=== PATIENT | male | born 1950 | race Caucasian/White ===

== ENCOUNTER 2018-01-08 13:47 | Emergency (ER) | payer MEDICARE, OTHER ==
[2018-01-08 13:58] VITALS: BP 158/93; PULSE 88; RESP 16; TEMP 98.3
--- NOTE | 2018-01-08 14:22 | ED ---
General Adult HPI - General Chief complaint: Fall Stated complaint: Fall Time Seen by Provider: 01/08/18 14:05 Source: patient, RN notes reviewed Mode of arrival: wheelchair Limitations: no limitations - History of Present Illness Initial comments: Patient 67-year-old male presents emergency room today with a chief complaint of fall occurred 2 days ago. He does admit that he fell forward after he was stung by a wasp. He states that he did not want us front teeth. Does have some abrasions to the lower chin. States to go to the dentist had this looked at. Does admit that over the last 2 days has been experiencing some discomfort to the right side of the ribs. Says reminds him of in the past when he had a broken rib. Patient also providing further history stating that he's been having his gallbladder looked at but they have not found any problem with it on their initial test. Patient states that this pain is different than pain that he's been experiencing recently with abdominal pain. He states this feels like his ribs to him. He denies any other complaints or symptoms at this time. Patient denies any recent fever, chills, shortness of breath, chest pain, nausea or vomiting, numbness or tingling, dysuria or hematuria, constipation or diarrhea, headaches or visual changes, or any other complaints. - Related Data Home Medications Medication Instructions Recorded Confirmed Aspirin EC [Ecotrin] 81 mg PO DAILY 05/15/15 05/16/15 Fluticasone/Salmeterol [Advair 1 inhalation PO BID 05/15/15 05/16/15 100-50 Diskus] Metoprolol Tartrate [Lopressor] 25 mg PO BID 05/15/15 05/16/15 Temazepam [Restoril] 30 mg PO HS 05/15/15 05/16/15 Allergies Allergy/AdvReac Type Severity Reaction Status Date / Time No Known Allergies Allergy Verified 01/08/18 13:58 Review of Systems ROS Statement: Those systems with pertinent positive or pertinent negative responses have been documented in the HPI. ROS Other: All systems not noted in ROS Statement are negative. 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 PLATELETS ELEVATED AND POTASSIUM ELEVATED- USES ADVAIR R/T POSSIBLE ALLERGY TO HIS CAT, GLASSES-DAILY USE History of Any Multi-Drug Resistant Organisms: None Reported Past Surgical History: Joint Replacement Additional Past Surgical History / Comment(s): ASHUTOSH HIP REPLACEMENTS & RT KNEE REPLACEMENT Past Anesthesia/Blood Transfusion Reactions: No Reported Reaction Past Psychological History: No Psychological Hx Reported Smoking Status: Never smoker Past Alcohol Use History: None Reported, Occasional Past Drug Use History: None Reported - Past Family History Father Family Medical History: Myocardial Infarction (NC) Additional Family Medical History / Comment(s): HAD NC IN HIS 80'S & CABG- LIVED INTO HIS 90'S Mother Additional Family Medical History / Comment(s): HEART PROBLEMS- HAD A STENT IN HER 80'S-LIVED INTO HER 90'S Brother(s) Additional Family Medical History / Comment(s): HX CABG X 2 General Exam - General Exam Comments Initial Comments: General: The patient is awake and alert, in no distress, and does not appear acutely ill. Eye: Pupils are equal, round and reactive to light, extra-ocular movements are intact. No nystagmus. There is normal conjunctiva bilaterally. No signs of icterus. Ears, nose, mouth and throat: There are moist mucous membranes and no oral lesions. Neck: The neck is supple, there is no tenderness or JVD. Cardiovascular: There is a regular rate and rhythm. No murmur, rub or gallop is appreciated. Respiratory: Lungs are clear to auscultation, respirations are non-labored, breath sounds are equal. No wheezes, stridor, rales, or rhonchi. Gastrointestinal: Soft, non-distended, non-tender abdomen without masses or organomegaly noted. There is no rebound or guarding present. No CVA tenderness. No bruising or ecchymosis. Musculoskeletal: Normal ROM, no tenderness. Strength 5/5. Sensation intact. Pulses equal bilaterally 2+. Neurological: A&O x 3. CN II-XII intact, There are no obvious motor or sensory deficits. Coordination appears grossly intact. Speech is normal. Skin: Skin is warm and dry and no rashes or lesions are noted. Psychiatric: Cooperative, appropriate mood & affect, normal judgment. Limitations: no limitations Course Vital Signs 01/08/18 13:55 Temperature 98.3 F Pulse Rate 88 Respiratory 16 Rate Blood Pressure 158/93 O2 Sat by Pulse 98 Oximetry Medical Decision Making - Medical Decision Making X-rays reviewed and does show fracture nondisplaced of the right fifth rib. Results were discussed with patient. Patient is advised to brace area for any coughing or congestion. Advised to return to the emergency room symptoms increase or worsen or for any other concerns. Disposition Clinical Impression: Fall, Rib fracture Disposition: HOME SELF-CARE Condition: Good Instructions: Rib Fracture (ED) Additional Instructions: Please use incentive spirometer as discussed. Please brace the area for any coughing, sneezing or certain movements. Please return to emergency room symptoms increase or worsen or for any other concerns. Is patient prescribed a controlled substance at d/c from ED?: No Referrals: Nolan Owens MD [Primary Care Provider] - 1-2 days Time of Disposition: 14:54
--- NOTE | 2018-01-08 14:41 | XR ---
EXAMINATION TYPE: XR ribs RT w pa chest xray DATE OF EXAM: 01/08/2018 CLINICAL HISTORY: Right-sided rib pain and chest pain. TECHNIQUE: Single frontal view of the chest is obtained. COMPARISON: None FINDINGS: There is no focal air space opacity, pleural effusion, or pneumothorax seen. There is a hollis btle nondisplaced fracture of the anterolateral margin of rib 5 on the right The cardiac silhouette size is within normal limits. The remaining osseous structures are intact. IMPRESSION: No acute cardiopulmonary process. Subtle nondisplaced fracture of the anterolateral kendrick in of rib 5 on the right.
== END 2018-01-08 15:40 | disposition home or self-care (01) ==
LOC: EC 13:47
DX: S22.31XA Fracture of one rib, right side, initial encounter for closed fracture (principal); S00.81XA Abrasion of other part of head, initial encounter; M19.90 Unspecified osteoarthritis, unspecified site; Z79.51 Long term (current) use of inhaled steroids; Z79.82 Long term (current) use of aspirin; Z79.899 Other long term (current) drug therapy; W57.XXXA Bitten or stung by nonvenomous insect and other nonvenomous arthropods, initial encounter; W19.XXXA Unspecified fall, initial encounter; Y92.89 Other specified places as the place of occurrence of the external cause
CPT/HCPCS: 99283